=== PATIENT | male | born 1965 ===

== ENCOUNTER 2018-04-30 10:08 | Emergency (ER) | payer BC ==
[~2018-04-30] VITALS: Ht 175.3 cm; Wt 86.2 kg
[2018-04-30] MEDS ORDERED: LEVOTHYROXINE100 MCG (10:38)
== END 2018-04-30 12:19 | disposition home or self-care (01) ==
LOC: ER 10:08
DX: J11.1 Influenza due to unidentified influenza virus with other respiratory manifestations (principal); B34.9 Viral infection, unspecified